=== PATIENT | male | born 1985 | race Caucasian/White ===

== ENCOUNTER 2018-08-16 16:06 | Inpatient (IN) | payer MEDICAID ==
[~2018-08-16] VITALS: Ht 172.7 cm; Wt 54.8 kg
[2018-08-16] MEDS ORDERED: normal saline 1000ML IV soln IVB ONE (16:40)
[2018-08-16] MEDS ORDERED: ketorolac tromethamine 15mg/ml inj. IV ONE (16:40)
[2018-08-16] MEDS ORDERED: acetaminophen 325mg tablet PO ONE (16:40)
[2018-08-16] MEDS ORDERED: vancomycin/NS 1 GM ADD-VANTAGE 250 ML IV ONE (16:59)
[2018-08-16 17:59] LABS: BASOPHILS # (AUTO) 0.1 X10'3 (0-0.2); BASOPHILS % (AUTO) 0.6 % (0-1); EOSINOPHILS # (AUTO) 0.1 X10'3 (0-0.9); EOSINOPHILS % (AUTO) 0.5 % (0-6); HEMATOCRIT 32.5 % (42.0-52.0); HEMOGLOBIN 10.7 g/dl (14.0-17.9); LYMPHOCYTES # (AUTO) 1.6 X10'3 (1.1-4.8); LYMPHOCYTES % (AUTO) 9.4 % (21-51); MEAN CORPUSCULAR HEMOGLOBIN 29.5 PG (27.0-31.0); MEAN CORPUSCULAR HGB CONC 33.1 % (33.0-36.5); MEAN CORPUSCULAR VOLUME 89.2 FL (78-98); MEAN PLATELET VOLUME 7.3 FL (7.4-10.4); MONOCYTES # (AUTO) 1.2 X10'3 (0-0.9); MONOCYTES % (AUTO) 6.8 % (2-12); NEUTROPHILS # (AUTO) 14.5 X10'3 (1.8-7.7); NEUTROPHILS % (AUTO) 82.7 % (42-75); PLATELET COUNT 334 X10'3 (140-440); RED BLOOD COUNT 3.64 X10'6 (4.70-6.10); RED CELL DISTRIBUTION WIDTH 14.5 % (11.5-14.5); WHITE BLOOD COUNT 17.5 X10'3 (4.5-11.0)
[2018-08-16] MEDS ORDERED: NO HOME MEDS (18:11)
[2018-08-16 18:13] LABS: PROTHROMBIN TIME 10.4 SECONDS (9.0-12.0)
[2018-08-16 18:14] LABS: ALANINE AMINOTRANSFERASE 37 U/L (12-78); ALBUMIN 2.3 G/DL (3.4-5.0); ALBUMIN/GLOBULIN RATIO 0.5 (1.1-1.5); ALKALINE PHOSPHATASE 129 IU/L (46-116); ANION GAP 9 (8-16); ASPARTATE AMINO TRANSFERASE 24 U/L (10-37); BILIRUBIN,TOTAL 0.2 MG/DL (0.1-1.0); BLOOD UREA NITROGEN 15 MG/DL (7-18); BUN/CREATININE RATIO 18.1 (5.4-32.0); CALCIUM 8.7 MG/DL (8.5-10.1); CHLORIDE 97 MMOL/L (99-107); CREATININE 0.83 MG/DL (0.60-1.10); GLUCOSE 119 MG/DL (70-104); POTASSIUM 3.7 MMOL/L (3.5-5.1); SODIUM 133 MMOL/L (135-145); TOTAL CARBON DIOXIDE 27.5 MMOL/L (24-32); TOTAL PROTEIN 7.3 G/DL (6.4-8.2); eGFR > 90 ML/MIN
[2018-08-16] MEDS ORDERED: mag hydrox/Alum hydrox/simeth 30ml oral suspension PO PRN (20:10)
[2018-08-16] MEDS ORDERED: ondansetron/PF 4mg/2ml inj IV PRN (20:10)
[2018-08-16] MEDS ORDERED: acetaminophen 325mg tablet PO PRN (20:10)
[2018-08-16] MEDS ORDERED: magnesium hydroxide 30ml (MOM) UD suspension PO PRN (20:10)
[2018-08-16] MEDS ORDERED: vancomycin/NS 500MG ADD-VANT 100 ML IV ONE (20:25)
[2018-08-16] MEDS ORDERED: vancomycin inj 500 MG in dextrose 5%-water 100 ML IV ONE (20:30)
[2018-08-16 21:15] VITALS: BP 87/38
[2018-08-16] MEDS: normal saline 1000ml 1,000 ML IV SCH (23:29)
[2018-08-17] VITALS: BP 120/79
[2018-08-17 06:05] LABS: BASOPHILS # (AUTO) 0.1 X10'3 (0-0.2); BASOPHILS % (AUTO) 0.4 % (0-1); EOSINOPHILS # (AUTO) 0.2 X10'3 (0-0.9); EOSINOPHILS % (AUTO) 1.4 % (0-6); HEMATOCRIT 30.9 % (42.0-52.0); HEMOGLOBIN 10.2 g/dl (14.0-17.9); LYMPHOCYTES # (AUTO) 1.8 X10'3 (1.1-4.8); LYMPHOCYTES % (AUTO) 11.1 % (21-51); MEAN CORPUSCULAR HEMOGLOBIN 29.8 PG (27.0-31.0); MEAN CORPUSCULAR HGB CONC 33.1 % (33.0-36.5); MEAN CORPUSCULAR VOLUME 90.2 FL (78-98); MEAN PLATELET VOLUME 7.8 FL (7.4-10.4); MONOCYTES # (AUTO) 1.4 X10'3 (0-0.9); MONOCYTES % (AUTO) 8.4 % (2-12); NEUTROPHILS # (AUTO) 12.8 X10'3 (1.8-7.7); NEUTROPHILS % (AUTO) 78.7 % (42-75); PLATELET COUNT 322 X10'3 (140-440); RED BLOOD COUNT 3.43 X10'6 (4.70-6.10); RED CELL DISTRIBUTION WIDTH 14.1 % (11.5-14.5); WHITE BLOOD COUNT 16.3 X10'3 (4.5-11.0)
[2018-08-17] MEDS: normal saline 1000ml 1,000 ML IV SCH ×2 (06:06→19:15)
[2018-08-17 06:20] LABS: ALANINE AMINOTRANSFERASE 35 U/L (12-78); ALBUMIN/GLOBULIN RATIO 0.4 (1.1-1.5); ALKALINE PHOSPHATASE 114 IU/L (46-116); ANION GAP 7 (8-16); ASPARTATE AMINO TRANSFERASE 23 U/L (10-37); BILIRUBIN,TOTAL 0.2 MG/DL (0.1-1.0); BLOOD UREA NITROGEN 19 MG/DL (7-18); BUN/CREATININE RATIO 24.7 (5.4-32.0); CALCIUM 8.7 MG/DL (8.5-10.1); CHLORIDE 101 MMOL/L (99-107); CREATININE 0.77 MG/DL (0.60-1.10); GLUCOSE 115 MG/DL (70-104); POTASSIUM 4.2 MMOL/L (3.5-5.1); SODIUM 135 MMOL/L (135-145); TOTAL CARBON DIOXIDE 26.9 MMOL/L (24-32); TOTAL PROTEIN 6.7 G/DL (6.4-8.2); eGFR > 90 ML/MIN
[2018-08-17 07:00] VITALS: BP 102/53
[2018-08-17] MEDS ORDERED: VANCOMYCIN 750MG IV in NS 250 ML IV SCH (07:00)
[2018-08-17] MEDS: heparin, porcine 5000 units/ml vial SQ SCH ×2 (08:07→19:08)
[2018-08-17 11:00] VITALS: BP 131/70
[2018-08-17] MEDS: clindamycin 600mg/D5W 50ml 50 ML IV SCH ×2 (13:40→19:08)
[2018-08-17] MEDS: ibuprofen tablet 400 MG TABLET PO SCH ×2 (13:40→16:32)
[2018-08-17] MEDS ORDERED: gadopentetate dimeglumine 7.5 MMOL/15 ML syringe ONE (14:21)
[2018-08-17] MEDS: VANCOMYCIN 750MG IV in NS 250 ML IV SCH ×2 (16:32→23:41)
[2018-08-17 19:00] VITALS: BP 126/81
[2018-08-17] MEDS: lactobacillus rhamnosus 10,000 MMU CELLS/CAPSULE PO SCH (19:07)
[2018-08-17 23:00] VITALS: BP 112/71
[2018-08-17 23:34] LABS: URINE AMPHETAMINE SCREEN NEGATIVE (Neg); URINE BARBITUATE SCREEN NEGATIVE (Neg); URINE BENZODIAZEPINES SCREEN NEGATIVE (Neg); URINE CANNABINOID SCREEN NEGATIVE (Neg); URINE COCAINE SCREEN NEGATIVE (Neg); URINE METHADONE SCREEN NEGATIVE (Neg); URINE OPIATE SCREEN NEGATIVE (Neg); URINE PHENCYCLIDINE SCREEN NEGATIVE (Neg)
[2018-08-18] VITALS (19 sets, daily range): BP systolic 104–150; BP diastolic 68–118
[2018-08-18] MEDS: clindamycin 600mg/D5W 50ml 50 ML IV SCH ×4 (03:14→20:37)
[2018-08-18] MEDS: normal saline 1000ml 1,000 ML IV SCH ×2 (05:24→17:30)
[2018-08-18] MEDS: heparin, porcine 5000 units/ml vial SQ SCH ×2 (07:29→20:36)
[2018-08-18] MEDS: lactobacillus rhamnosus 10,000 MMU CELLS/CAPSULE PO SCH ×2 (07:29→20:37)
[2018-08-18] MEDS ORDERED: VANCOMYCIN LEVEL IV NR (07:30)
[2018-08-18 07:45] LABS: BASOPHILS # (AUTO) 0.2 X10'3 (0-0.2); BASOPHILS % (AUTO) 1.4 % (0-1); EOSINOPHILS # (AUTO) 0.4 X10'3 (0-0.9); EOSINOPHILS % (AUTO) 2.8 % (0-6); HEMATOCRIT 33.3 % (42.0-52.0); HEMOGLOBIN 10.8 g/dl (14.0-17.9); LYMPHOCYTES # (AUTO) 1.7 X10'3 (1.1-4.8); MEAN CORPUSCULAR HEMOGLOBIN 29.3 PG (27.0-31.0); MEAN CORPUSCULAR HGB CONC 32.3 % (33.0-36.5); MEAN CORPUSCULAR VOLUME 90.8 FL (78-98); MEAN PLATELET VOLUME 7.3 FL (7.4-10.4); MONOCYTES # (AUTO) 0.9 X10'3 (0-0.9); MONOCYTES % (AUTO) 6.8 % (2-12); NEUTROPHILS # (AUTO) 10.7 X10'3 (1.8-7.7); PLATELET COUNT 405 X10'3 (140-440); RED BLOOD COUNT 3.67 X10'6 (4.70-6.10); RED CELL DISTRIBUTION WIDTH 14.3 % (11.5-14.5); WHITE BLOOD COUNT 13.9 X10'3 (4.5-11.0)
[2018-08-18] MEDS: VANCOMYCIN 750MG IV in NS 250 ML IV SCH (08:23)
[2018-08-18] MEDS: ibuprofen tablet 400 MG TABLET PO SCH ×3 (08:30→17:30)
[2018-08-18 08:35] LABS: ALANINE AMINOTRANSFERASE 35 U/L (12-78); ALBUMIN/GLOBULIN RATIO 0.4 (1.1-1.5); ALKALINE PHOSPHATASE 109 IU/L (46-116); ANION GAP 5 (8-16); ASPARTATE AMINO TRANSFERASE 21 U/L (10-37); BILIRUBIN,TOTAL 0.2 MG/DL (0.1-1.0); BLOOD UREA NITROGEN 11 MG/DL (7-18); BUN/CREATININE RATIO 13.9 (5.4-32.0); CALCIUM 8.7 MG/DL (8.5-10.1); CHLORIDE 103 MMOL/L (99-107); CREATININE 0.79 MG/DL (0.60-1.10); GLUCOSE 106 MG/DL (70-104); POTASSIUM 4.4 MMOL/L (3.5-5.1); SODIUM 137 MMOL/L (135-145); TOTAL CARBON DIOXIDE 28.8 MMOL/L (24-32); TOTAL PROTEIN 6.9 G/DL (6.4-8.2); VANCOMYCIN,TROUGH 6.5 UG/ML (6.0-14.0); eGFR > 90 ML/MIN
[2018-08-18] MEDS ORDERED: morphine 2 MG/ML inj. syringe IV PRN (13:05)
[2018-08-18] MEDS: morphine 2 MG/ML inj. syringe IV PRN ×3 (13:59→23:45)
[2018-08-18] MEDS ORDERED: sevoflurane 250ml liquid IH ONE (15:05)
[2018-08-18] MEDS ORDERED: ringers solution, lacted 1,000 ML IV SCH (15:07)
[2018-08-18] MEDS ORDERED: fentaNYL/PF 50MCG/1 ML 2ML syringe ONE ×2 (15:10→15:46)
[2018-08-18] MEDS ORDERED: ondansetron/PF 4mg/2ml inj IV PRN (15:10)
[2018-08-18] MEDS ORDERED: meperidine/PF 25mg/ml syringe IV PRN ×3 (15:10)
[2018-08-18] MEDS ORDERED: morphine 4 MG/ML inj SYRINge IV PRN ×2 (15:10)
[2018-08-18] MEDS ORDERED: proCHLORperazine 10 MG/2 ml inj IV PRN (15:10)
[2018-08-18] MEDS ORDERED: midazolam 2 mg/2 ml injection ONE (15:10)
[2018-08-18] MEDS ORDERED: vancomycin 1,000mg inj ONE (15:42)
[2018-08-18] MEDS ORDERED: LIDOcaine 2% (20mg/ml) 5ml vial ONE (15:46)
[2018-08-18] MEDS ORDERED: glycopyrrolate 0.2mg/ml inj ONE (15:46)
[2018-08-18] MEDS ORDERED: propofol inj 20 ML IV ONE (15:46)
[2018-08-18] MEDS ORDERED: neostigmine methylsulfate 1 MG/ML 10ml vial ONE (15:46)
[2018-08-18] MEDS ORDERED: rocuronium 10mg/ml inj IV ONE (15:46)
[2018-08-18] MEDS ORDERED: ondansetron/PF 4mg/2ml inj ONE (15:46)
[2018-08-18] MEDS: vancomycin/NS 1 GM ADD-VANTAGE 250 ML IV SCH ×2 (16:00→23:43)
[2018-08-19] VITALS: BP 106/61
[2018-08-19] MEDS: clindamycin 600mg/D5W 50ml 50 ML IV SCH ×4 (02:04→19:04)
[2018-08-19] MEDS: temazepam 15mg capsule PO PRN ×2 (02:16→22:18)
[2018-08-19 04:30] VITALS: BP 122/67
[2018-08-19] MEDS: morphine 2 MG/ML inj. syringe IV PRN ×6 (05:01→22:07)
[2018-08-19] MEDS: normal saline 1000ml 1,000 ML IV SCH ×2 (05:04→19:09)
[2018-08-19 06:25] LABS: BASOPHILS # (AUTO) 0.1 X10'3 (0-0.2); BASOPHILS % (AUTO) 0.9 % (0-1); EOSINOPHILS # (AUTO) 0.4 X10'3 (0-0.9); EOSINOPHILS % (AUTO) 3.8 % (0-6); HEMATOCRIT 31.7 % (42.0-52.0); HEMOGLOBIN 10.5 g/dl (14.0-17.9); LYMPHOCYTES # (AUTO) 2.4 X10'3 (1.1-4.8); LYMPHOCYTES % (AUTO) 23.3 % (21-51); MEAN CORPUSCULAR HEMOGLOBIN 29.9 PG (27.0-31.0); MEAN CORPUSCULAR VOLUME 90.7 FL (78-98); MEAN PLATELET VOLUME 7.1 FL (7.4-10.4); MONOCYTES # (AUTO) 0.8 X10'3 (0-0.9); MONOCYTES % (AUTO) 7.8 % (2-12); NEUTROPHILS # (AUTO) 6.7 X10'3 (1.8-7.7); NEUTROPHILS % (AUTO) 64.2 % (42-75); PLATELET COUNT 481 X10'3 (140-440); RED CELL DISTRIBUTION WIDTH 14.6 % (11.5-14.5); WHITE BLOOD COUNT 10.4 X10'3 (4.5-11.0)
[2018-08-19 06:38] LABS: ALANINE AMINOTRANSFERASE 34 U/L (12-78); ALBUMIN/GLOBULIN RATIO 0.4 (1.1-1.5); ALKALINE PHOSPHATASE 108 IU/L (46-116); ANION GAP 6 (8-16); ASPARTATE AMINO TRANSFERASE 21 U/L (10-37); BILIRUBIN,TOTAL 0.1 MG/DL (0.1-1.0); BLOOD UREA NITROGEN 13 MG/DL (7-18); BUN/CREATININE RATIO 14.6 (5.4-32.0); CALCIUM 8.7 MG/DL (8.5-10.1); CHLORIDE 102 MMOL/L (99-107); CREATININE 0.89 MG/DL (0.60-1.10); GLUCOSE 102 MG/DL (70-104); POTASSIUM 4.5 MMOL/L (3.5-5.1); SODIUM 137 MMOL/L (135-145); TOTAL CARBON DIOXIDE 29.2 MMOL/L (24-32); eGFR > 90 ML/MIN
[2018-08-19 07:08] VITALS: BP 115/68
[2018-08-19] MEDS: lactobacillus rhamnosus 10,000 MMU CELLS/CAPSULE PO SCH ×2 (07:35→19:04)
[2018-08-19] MEDS: ibuprofen tablet 400 MG TABLET PO SCH ×3 (07:37→17:37)
[2018-08-19] MEDS: heparin, porcine 5000 units/ml vial SQ SCH ×2 (07:40→19:04)
[2018-08-19] MEDS: vancomycin/NS 1 GM ADD-VANTAGE 250 ML IV SCH (09:37)
[2018-08-19 11:16] VITALS: BP 113/66
[2018-08-19 12:43] VITALS: BP 124/78
[2018-08-19] MEDS ORDERED: VANCOMYCIN LEVEL IV NR (15:30)
[2018-08-19 20:00] VITALS: BP 120/77
[2018-08-20] VITALS: BP 112/66
[2018-08-20] MEDS: clindamycin 600mg/D5W 50ml 50 ML IV SCH ×4 (01:10→19:36)
[2018-08-20] MEDS: morphine 2 MG/ML inj. syringe IV PRN ×5 (04:27→19:43)
[2018-08-20 07:00] VITALS: BP 124/77
[2018-08-20] MEDS: normal saline 1000ml 1,000 ML IV SCH (07:24)
[2018-08-20] MEDS: lactobacillus rhamnosus 10,000 MMU CELLS/CAPSULE PO SCH ×2 (08:51→19:36)
[2018-08-20] MEDS: ibuprofen tablet 400 MG TABLET PO SCH ×3 (08:51→17:10)
[2018-08-20] MEDS: heparin, porcine 5000 units/ml vial SQ SCH ×2 (08:52→19:36)
[2018-08-20 09:44] LABS: ALANINE AMINOTRANSFERASE 34 U/L (12-78); ALBUMIN 2.3 G/DL (3.4-5.0); ALBUMIN/GLOBULIN RATIO 0.4 (1.1-1.5); ALKALINE PHOSPHATASE 103 IU/L (46-116); ANION GAP 11 (8-16); ASPARTATE AMINO TRANSFERASE 19 U/L (10-37); BILIRUBIN,TOTAL 0.1 MG/DL (0.1-1.0); BLOOD UREA NITROGEN 18 MG/DL (7-18); BUN/CREATININE RATIO 21.2 (5.4-32.0); CALCIUM 9.1 MG/DL (8.5-10.1); CHLORIDE 102 MMOL/L (99-107); CREATININE 0.85 MG/DL (0.60-1.10); GLUCOSE 97 MG/DL (70-104); POTASSIUM 4.5 MMOL/L (3.5-5.1); SODIUM 138 MMOL/L (135-145); TOTAL CARBON DIOXIDE 25.2 MMOL/L (24-32); TOTAL PROTEIN 7.8 G/DL (6.4-8.2); eGFR > 90 ML/MIN
[2018-08-20 11:00] VITALS: BP 117/80
[2018-08-20 19:00] VITALS: BP 123/63
[2018-08-20] MEDS: temazepam 15mg capsule PO PRN (23:06)
[2018-08-21] VITALS: BP 112/66
[2018-08-21] MEDS: clindamycin 600mg/D5W 50ml 50 ML IV SCH ×2 (01:28→09:18)
[2018-08-21] MEDS: morphine 2 MG/ML inj. syringe IV PRN (02:42)
[2018-08-21 05:44] LABS: ALANINE AMINOTRANSFERASE 41 U/L (12-78); ALBUMIN 2.2 G/DL (3.4-5.0); ALBUMIN/GLOBULIN RATIO 0.4 (1.1-1.5); ALKALINE PHOSPHATASE 96 IU/L (46-116); ANION GAP 9 (8-16); ASPARTATE AMINO TRANSFERASE 30 U/L (10-37); BILIRUBIN,TOTAL 0.1 MG/DL (0.1-1.0); BLOOD UREA NITROGEN 20 MG/DL (7-18); BUN/CREATININE RATIO 23.5 (5.4-32.0); CALCIUM 9.1 MG/DL (8.5-10.1); CHLORIDE 102 MMOL/L (99-107); CREATININE 0.85 MG/DL (0.60-1.10); GLUCOSE 88 MG/DL (70-104); POTASSIUM 4.5 MMOL/L (3.5-5.1); SODIUM 137 MMOL/L (135-145); TOTAL CARBON DIOXIDE 26.4 MMOL/L (24-32); TOTAL PROTEIN 7.3 G/DL (6.4-8.2); eGFR > 90 ML/MIN
[2018-08-21 08:00] VITALS: BP 115/57
[2018-08-21] MEDS: lactobacillus rhamnosus 10,000 MMU CELLS/CAPSULE PO SCH (09:18)
[2018-08-21] MEDS: heparin, porcine 5000 units/ml vial SQ SCH (09:20)
[2018-08-21] MEDS: ibuprofen tablet 400 MG TABLET PO SCH ×2 (09:20→13:19)
[2018-08-21] MEDS ORDERED: IBUP-1984 PO (11:10)
[2018-08-21] MEDS ORDERED: CLIN-5 PO (11:10)
[2018-08-21] MEDS ORDERED: FAMO-128 PO (11:28)
[2018-08-21 11:48] VITALS: BP 125/75
== END 2018-08-21 15:15 | disposition home or self-care (01) | DRG 317 ==
LOC: ER 16:07 → SUR 3N 20:06 → PACU 08-18 14:55 → SUR 3N 08-18 16:56
PROVIDERS: ADMIT Internal Medicine; ATTEND Internal Medicine
PROC: 2W3LXYZ Immobilization of Right Lower Extremity using Other Device (ICD-10-PCS; 2018-08-18)
PROC: 0M9N0ZZ Drainage of Right Knee Bursa and Ligament, Open Approach (ICD-10-PCS; principal; 2018-08-18 15:05)
DX: M70.41 Prepatellar bursitis, right knee (principal); L02.415 Cutaneous abscess of right lower limb; L97.819 Non-pressure chronic ulcer of other part of right lower leg with unspecified severity; L03.115 Cellulitis of right lower limb; F15.10 Other stimulant abuse, uncomplicated; F17.210 Nicotine dependence, cigarettes, uncomplicated; B95.61 Methicillin susceptible Staphylococcus aureus infection as the cause of diseases classified elsewhere; R26.2 Difficulty in walking, not elsewhere classified; B95.5 Unspecified streptococcus as the cause of diseases classified elsewhere; Z79.82 Long term (current) use of aspirin; Y93.89 Activity, other specified; Z59.0 Homelessness; Z71.51 Drug abuse counseling and surveillance of drug abuser
CPT/HCPCS: 36415; 73720; 80053; 80202; 80305; 83605; 85025; 85610; 87040; 87070; 87075; 87077; 87102; 87186; 93306; 96361; 96365; 96375; 97116; 97161; 99285; A6449; A7000; A9579; G0378; J0690; J1644; J1885; J2001; J2250; J2270; J2405; J2704; J2710; J3010; J3370; J3490; J7030; J7060; J7120